=== PATIENT | female | born 1955 | race Two or more races ===

== ENCOUNTER 2020-09-06 11:11 | Emergency (ER) | payer MEDICARE, OTHER ==
[~2020-09-06] VITALS: Ht 154.9 cm; Wt 54.9 kg
--- NOTE | 2020-09-06 11:38 | NUR ---
SENT HERE BY PCP,C/O R WRIST AND SHOULDER PAIN,GLF 3 MONTHS AGO. PATIENT A/OX4, BREATHING EVEN AND UNLABORED, NO SOB NOTED.
[2020-09-06] MEDS ORDERED: KETOROLAC TROMETHAMINE 15 MG/ML VIAL ONE (12:59)
[2020-09-06] MEDS ORDERED: KETOROLAC TROMETHAMINE INJ 30 MG/ML VIAL IM ONE (13:00)
[2020-09-06 13:07] VITALS: BP 115/77
--- NOTE | 2020-09-06 13:07 | NUR ---
Patient discharged to home in stable condition. Written and verbal after care instructions given. Patient verbalizes understanding of instruction.
== END 2020-09-06 13:07 | disposition home or self-care (01) ==
LOC: ER 11:19
DX: M25.511 Pain in right shoulder (principal); M25.531 Pain in right wrist; I10 Essential (primary) hypertension; E78.5 Hyperlipidemia, unspecified; G35 Multiple sclerosis; E78.00 Pure hypercholesterolemia, unspecified
CPT/HCPCS: 73030; 73110; 96372; 99284; J1885

== ENCOUNTER 2020-12-14 11:24 | Emergency (ER) | payer MEDICARE, OTHER ==
[~2020-12-14] VITALS: Ht 170.2 cm; Wt 54.4 kg
--- NOTE | 2020-12-14 11:56 | NUR ---
65 years old female presents to er c/o left flank pain, strong urine odor, no fever, chills/nausea, vomiting.
--- NOTE | 2020-12-14 12:08 | NUR ---
urine collected and sent to the lab
[2020-12-14 12:33] LABS: BILIRUBIN,URINE Negative (NEGATIVE); COLOR,URINE YELLOW (YELLOW); LEUKOCYTE ESTERASE ,URINE Moderate (NEGATIVE); NITRITE, URINE Positive (NEGATIVE); PROTEIN,URINE Negative (NEGATIVE); UGLUCOSE Negative (NEGATIVE); UROBILINOGEN,URINE 0.2 EU/dL (0.2)
[2020-12-14 12:34] LABS: BACTERIA,URINE 1+ /HPF (None Seen); SQUAMOUS EPITHELIAL CELL,UR Few /HPF (None Seen)
--- NOTE | 2020-12-14 12:58 | NUR ---
condition stable d/c home with instructions after care reviewed understood left er with lawn care specialist.
[2020-12-14] MEDS ORDERED: NITR100C6 PO (13:06)
[2020-12-14 13:19] VITALS: BP 118/70
== END 2020-12-14 13:20 | disposition home or self-care (01) ==
LOC: ER 11:28
DX: N39.0 Urinary tract infection, site not specified (principal); I10 Essential (primary) hypertension; E78.00 Pure hypercholesterolemia, unspecified; Z79.899 Other long term (current) drug therapy
CPT/HCPCS: 81001; 87086-TC; 87186-TC